=== PATIENT | male | born 1990 | race Caucasian/White ===

== ENCOUNTER → 2019-03-16 | Outpatient (CLI) | payer OTHER ==
[~2019-03-16] MED LIST: ACET325T9 PO; GADOBUTROL 10 MMOL/10 ML VIAL IV ONE; LORA10TA3 PO; OXCA600T3 PO; TRIA10.8 NS
--- NOTE | 2019-03-16 14:42 | KCIC ---
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 TECHNIQUE: Multiplanar multi-weighted MRI of the brain and brainstem was performed without and with intravenous contrast using the general brain protocol. Contrast information: 8 mL Gadolinium based contrast COMPARISON: None available. FINDINGS: Postoperative changes are identified from right parietal craniotomy for resection of a right posterior parietal tumor. There is encephalomalacia involving the medial posterior right parietal lobe. There is a thin rim of FLAIR signal alteration which may representing gliosis. There is more nodular FLAIR signal hyperintensity along the inferior margin of the resection cavity without significant mass effect. There is no associated enhancement. Right occipital scalp inclusion cyst is noted. The superior sagittal sinus demonstrates normal venous flow. The corpus callosum is normal in shape and signal intensity. The posterior fossa is unremarkable. The pituitary and sella are normal. The brainstem and craniocervical junction are unremarkable. Diffusion weighted images reveal no hyperintensities to suggest acute cerebral infarction. The susceptibility weighted sequences reveal no evidence of acute or chronic hemorrhage. The ventricles are normal in size and position without evidence of hydrocephalus. There are no areas of abnormal contrast enhancement. Moderate mucus retention cyst in the left maxillary sinus. There is tiny mucus retention cyst in the right maxillary sinus. Mucosal thickening is noted involving the anterior ethmoid air cells. The visualized portions of the mastoids are unremarkable. The orbits appear normal. Normal flow voids are demonstrated in the carotid arteries and basilar artery. IMPRESSION: Postoperative changes are identified from right parietal craniotomy for resection of a right posterior parietal mass. There is no associated enhancement. Thin rim of T2 signal hyperintensity and FLAIR signal alteration are visualized with more nodular FLAIR signal along the anterior inferior margin. Correlation with prior imaging may be of benefit to assess for any interval change. Electronically signed by: Zee Klein MD (03/16/2019 2:39 PM) [id number]
== END | disposition home or self-care (01) ==
LOC: KCIC MRI 12:53
PROVIDERS: ATTEND Psychiatry & Neurology Neurology with Special Qualifications in Child Neurology
DX: C71.4 Malignant neoplasm of occipital lobe (principal); G93.89 Other specified disorders of brain; J34.1 Cyst and mucocele of nose and nasal sinus; J34.89 Other specified disorders of nose and nasal sinuses; L72.0 Epidermal cyst
CPT/HCPCS: 70553; A9585